=== PATIENT | female | born 1970 | race Caucasian/White ===

== ENCOUNTER → 2020-11-19 14:22 | Outpatient (BNVA) | payer OTHER, SELFPAY | PROVIDERS: PCP Internal Medicine; Visit Provider Physician Assistant | DX: E66.9 Obesity, unspecified (principal); Z68.39 Body mass index [BMI] 39.0-39.9, adult; K91.2 Postsurgical malabsorption, not elsewhere classified; R10.9 Unspecified abdominal pain; R11.2 Nausea with vomiting, unspecified; Z98.84 Bariatric surgery status; Z90.3 Acquired absence of stomach [part of] | CPT/HCPCS: 99212 ==

== ENCOUNTER 2020-11-24 06:23 | Day surgery (SDC) | payer OTHER, SELFPAY ==
--- NOTE | 2020-11-23 08:52 | HO.ANESPROP2 ---
Documented by User: Jesi Freedmanney 11/23/20 09:56 HPI - Anesthesia Eval Consult details Narrative: 50yo F for Upper Endoscopy s/p gastric sleeve 2017 Eliquis for h/o LLE DVT - ? date PMFSH Active Problems Active Problems: All Active Problems (Updated 11/19/20 @ 15:46 by Staci Boucher PA-C) Intestinal malabsorption following gastrectomy (Acute) Obesity (BMI 30-39.9) (Acute) S/P laparoscopic sleeve gastrectomy (Acute) Vomiting (Acute) Nausea (Acute) Abdominal pain (Acute) Past Medical History Medical History (Updated 11/24/20 @ 07:00 by Eulalia Dee, RAULITO) Anemia Atrial fibrillation Breast cancer Breast reconstruction deformity Depression Epilepsy GERD (gastroesophageal reflux disease) Goiter, non-toxic HLD (hyperlipidemia) IFG (impaired fasting glucose) Intestinal malabsorption following gastrectomy Left leg DVT Migraines Obesity (BMI 30-39.9) Family History Family History (Updated 11/19/20 @ 15:12 by Fariha Spear MA) Father CHF (congestive heart failure) Kidney disease Diabetes mellitus Hypertension Congenital afibrinogenemia Mother Hypertension Depressed Anxiety Sister Hypertension Back problem Daughter No problems noted. Son High cholesterol Depressed Anxiety Hypertension Social phobia Surgical History Surgical History (Updated 11/19/20 @ 15:46 by Staci Boucher PA-C) H/O Achilles tendon repair H/O right mastectomy History of sleeve gastrectomy Hx of section Hx of hysterectomy S/P laparoscopic sleeve gastrectomy Social History Social History (Updated 11/19/20 @ 15:12 by Fariha Spear MA) Alcohol intake: never Smoking Status: Never smoker Second Hand Smoke Exposure: No Use of substances other than those prescribed or required for medical reasons: No Advance Directives: No Advance Directives Information Provided: No Advance Directives on File: No Recently lost weight without trying: No Meds Allergies Allergy/AdvReac Type Severity Reaction Status Date / Time codeine [CODEINE] Allergy Mild VOMITING Verified 11/19/20 14:50 fluoxetine [From PROZAC] Allergy Mild VOMITNG Verified 11/19/20 14:50 acetaminophen [Percocet] Allergy Unknown Nausea Verified 11/19/20 14:50 oxycodone [Percocet] Allergy Unknown Nausea and Verified 11/19/20 14:50 Vomiting Codeine Phosphate Allergy Mild vomiting Uncoded 11/19/20 14:50 Home Medications Medication Instructions Recorded Confirmed Type Al hyd-Mg tr-alg ac-sod bicarb 80 tab PO 11/19/20 History mg-14.2 mg chewable tablet apixaban 5 mg tablet 5 mg PO BID 11/19/20 History atorvastatin 10 mg tablet 10 mg PO DAILY 11/19/20 History calcium citrate-ergocalciferol tab PO 11/19/20 History (vitamin D2) 250 mg-100 unit tablet docusate sodium 100 mg capsule 100 mg PO DAILY 11/19/20 History ferrous sulfate 300 mg (60 mg 300 mg PO DAILY 11/19/20 History iron)/5 mL oral liquid gabapentin 800 mg tablet 800 mg PO BEDTIME 11/19/20 History magnesium oxide 500 mg capsule 500 mg PO DAILY 11/19/20 History metoprolol tartrate 50 1 tab PO DAILY 11/19/20 History mg-hydrochlorothiazide 25 mg tablet multivitamin with minerals-folic tab PO 11/19/20 History acid 200 mcg chewable tablet nabumetone 750 mg tablet 1,500 mg PO DAILY 11/19/20 History pantoprazole 40 mg tablet,delayed 40 mg PO DAILY 11/19/20 History release polyethylene glycol 3350 17 17 g PO DAILY 11/19/20 History gram/dose oral powder promethazine-codeine oral syrup ea PO 11/19/20 History quetiapine 300 mg tablet 300 mg PO BID 11/19/20 History sertraline 50 mg tablet 50 mg PO DAILY 11/19/20 History sucralfate 100 mg/mL oral 10 ml PO BID 11/19/20 History suspension sumatriptan succinate 100 mg tablet 100 mg PO Q2-4H PRN 11/19/20 History trazodone 50 mg tablet 25 mg PO DAILY 11/19/20 History Exam Exam Date and Time: November 23, 2020 0852 Assessment and Plan Assessment Anesthesia Assessment: Chart Reviewed Documented by User: Allie Maria 11/24/20 07:12 [facility] Past Medical History Medical History (Updated 11/24/20 @ 07:00 by Eulalia Dee RN) Anemia Atrial fibrillation Breast cancer Breast reconstruction deformity Depression Epilepsy GERD (gastroesophageal reflux disease) Goiter, non-toxic HLD (hyperlipidemia) IFG (impaired fasting glucose) Intestinal malabsorption following gastrectomy Left leg DVT Migraines Obesity (BMI 30-39.9) Family History Family History (Updated 11/19/20 @ 15:12 by Fariha Spear MA) Father CHF (congestive heart failure) Kidney disease Diabetes mellitus Hypertension Congenital afibrinogenemia Mother Hypertension Depressed Anxiety Sister Hypertension Back problem Daughter No problems noted. Son High cholesterol Depressed Anxiety Hypertension Social phobia Surgical History Surgical History (Updated 11/19/20 @ 15:46 by Staci Boucher PA-C) H/O Achilles tendon repair H/O right mastectomy History of sleeve gastrectomy Hx of section Hx of hysterectomy S/P laparoscopic sleeve gastrectomy Social History Social History (Updated 11/19/20 @ 15:12 by Fariha Spear MA) Alcohol intake: never Smoking Status: Never smoker Second Hand Smoke Exposure: No Use of substances other than those prescribed or required for medical reasons: No Advance Directives: No Advance Directives Information Provided: No Advance Directives on File: No Recently lost weight without trying: No Meds Allergies Allergy/AdvReac Type Severity Reaction Status Date / Time codeine [CODEINE] Allergy Mild VOMITING Verified 11/19/20 14:50 fluoxetine [From PROZAC] Allergy Mild VOMITNG Verified 11/19/20 14:50 acetaminophen [Percocet] Allergy Unknown Nausea Verified 11/19/20 14:50 oxycodone [Percocet] Allergy Unknown Nausea and Verified 11/19/20 14:50 Vomiting Codeine Phosphate Allergy Mild vomiting Uncoded 11/19/20 14:50 Home Medications Medication Instructions Recorded Confirmed Type Al hyd-Mg tr-alg ac-sod bicarb 80 tab PO 11/19/20 History mg-14.2 mg chewable tablet apixaban 5 mg tablet 5 mg PO BID 11/19/20 History atorvastatin 10 mg tablet 10 mg PO DAILY 11/19/20 History calcium citrate-ergocalciferol tab PO 11/19/20 History (vitamin D2) 250 mg-100 unit tablet docusate sodium 100 mg capsule 100 mg PO DAILY 11/19/20 History ferrous sulfate 300 mg (60 mg 300 mg PO DAILY 11/19/20 History iron)/5 mL oral liquid gabapentin 800 mg tablet 800 mg PO BEDTIME 11/19/20 History magnesium oxide 500 mg capsule 500 mg PO DAILY 11/19/20 History metoprolol tartrate 50 1 tab PO DAILY 11/19/20 History mg-hydrochlorothiazide 25 mg tablet multivitamin with minerals-folic tab PO 11/19/20 History acid 200 mcg chewable tablet nabumetone 750 mg tablet 1,500 mg PO DAILY 11/19/20 History pantoprazole 40 mg tablet,delayed 40 mg PO DAILY 11/19/20 History release polyethylene glycol 3350 17 17 g PO DAILY 11/19/20 History gram/dose oral powder promethazine-codeine oral syrup ea PO 11/19/20 History quetiapine 300 mg tablet 300 mg PO BID 11/19/20 History sertraline 50 mg tablet 50 mg PO DAILY 11/19/20 History sucralfate 100 mg/mL oral 10 ml PO BID 11/19/20 History suspension sumatriptan succinate 100 mg tablet 100 mg PO Q2-4H PRN 11/19/20 History trazodone 50 mg tablet 25 mg PO DAILY 11/19/20 History Exam Airway Mallampati Class: II TM Dist: >3cm Neck ROM: Full Heart: RRR Lungs: CTA BL Assessment and Plan Assessment Anesthesia Assessment: Anesthesia Plan Discussed Final Anesthetic Review NPO: Yes (Sip water with meds) ASA Class: III Final Preanesthetic Review: Meds/Allgs Chart Reviewed and Consent Obtained/Reviewed Patient Risk: Intermediate Procedure Risk: Intermediate Anesthetic Plan Anesthetic Plan: MAC: Disposition: Standard PACU
[2020-11-23 09:57] VITALS: BMI 39.4
--- NOTE | 2020-11-23 16:32 | MHC.SHP ---
Pre-Procedural Eval Section B Chief Complaint: gerd Allergies: Allergies Allergy/AdvReac Type Severity Reaction Status Date / Time codeine [CODEINE] Allergy Mild VOMITING Verified 11/19/20 14:50 fluoxetine [From PROZAC] Allergy Mild VOMITNG Verified 11/19/20 14:50 acetaminophen [Percocet] Allergy Unknown Nausea Verified 11/19/20 14:50 oxycodone [Percocet] Allergy Unknown Nausea and Verified 11/19/20 14:50 Vomiting Codeine Phosphate Allergy Mild vomiting Uncoded 11/19/20 14:50 Plan I have reviewed the history and physical and performed a pertinent physical examination on my patient. No changes have occurred unless specified.
[2020-11-24 06:38] VITALS: BP 107/63; PULSE 57; RESP 16; TEMP 36; O2SAT 96; BMI 39.3
[2020-11-24 08:00] VITALS: BP 110/58; PULSE 60; RESP 16; TEMP 36.2; O2SAT 94
--- NOTE | 2020-11-24 08:07 | PM.OP ---
Brief Operative Note Date of Service: 11/24/20 Pre-op diagnosis: Weight gain after sleeve gastrectomy several years ago, gastroesophageal reflux disease, nausea Post-op diagnosis: other (3 cm sliding hiatal hernia, antral gastritis, 2nd portion of duodenum polyp) Procedure: Esophagogastroduodenoscopy, antral biopsy x2, 2nd portion duodenum polypectomy Implants: None Surgeon: Concepción Asher MD Anesthesia: MAC Estimated blood loss (mL): 0 Pathology: other (Antrum and 2nd portion duodenum polyp) Condition: stable Disposition: PACU
[2020-11-24 08:15] VITALS: BP 119/67; PULSE 59; RESP 16; TEMP 36.2; O2SAT 95
--- NOTE | 2020-11-24 10:21 | OP_ITS ---
SURGEON: Concepción Asher MD PREOPERATIVE DIAGNOSIS: POSTOPERATIVE DIAGNOSIS: PROCEDURE PERFORMED: 1. Esophagogastroduodenoscopy. 2. Second portion of duodenum polypectomy. 3. Antral biopsy x2. ESTIMATED BLOOD LOSS: COMPLICATIONS: None. ANESTHESIA: Total intravenous anesthesia with propofol given by the anesthesiologist. ASSISTANTS: None. SPECIMENS: PREPROCEDURE DIAGNOSES: Gastroesophageal reflux disease, nausea, and weight gain after sleeve gastrectomy. POSTPROCEDURE DIAGNOSES: Second portion of duodenum polyp, hiatal hernia, antral gastritis. FINDINGS: A 3 cm sliding hiatal hernia. No evidence of torsion of the gastric sleeve or stenosis. The esophageal mucosa was normal. There was linear erythema in the antrum and there was a small polyp found in the second portion of duodenum that was white in appearance. DESCRIPTION OF PROCEDURE: The patient was brought into the endoscopy suite and placed in the left lateral decubitus position on the stretcher. A safety time-out was performed. A bite block was placed between the teeth. Total intravenous anesthesia was administered using propofol by the anesthesiologist. Once the patient was adequately sedated, the gastroscope was placed into posterior oropharynx, passed down the esophagus, evaluating the esophageal mucosa which was normal. The GE junction was located at 33 cm from the incisors. The hiatus was located at 36 cm from the incisors. There was a sliding hiatal hernia. The gastroscope was then passed through the gastric pouch down to the pre-pyloric region. There was no evidence of gastric torsion or stenosis or abnormal ulcerations or lesions within the stomach. The gastroscope was passed to the pre-pyloric region. There was a linear erythema in the antrum. This was biopsied x2. The gastroscope was then passed through the pylorus into the duodenum, down to the 3rd portion of duodenum. At the second portion of duodenum, there was a relatively sessile white in appearance polyp located on the intestinal folds. We biopsied this x2 and completely removed it. We sent this for pathology. The rest of the duodenum that was evaluated, appeared to be normal. Gastroscope was retracted back in the stomach. Stomach was desufflated and gastroscope was removed without difficulty. The patient tolerated the procedure well and was sent to recovery room in stable condition. MD ADITYA Aguilar/JEREMIAS / [id number]
== END 2020-11-24 08:56 | disposition home or self-care (01) ==
PROVIDERS: PCP Internal Medicine; Visit Provider Surgery
PROC: 0DJ08ZZ Inspection of Upper Intestinal Tract, Via Natural or Artificial Opening Endoscopic (ICD-10-PCS; CPT 43235; principal; 2020-11-24 07:30)
DX: K21.9 Gastro-esophageal reflux disease without esophagitis (principal); K29.50 Unspecified chronic gastritis without bleeding; K31.7 Polyp of stomach and duodenum; K44.9 Diaphragmatic hernia without obstruction or gangrene; D64.9 Anemia, unspecified; E66.9 Obesity, unspecified; Z68.39 Body mass index [BMI] 39.0-39.9, adult; G40.909 Epilepsy, unspecified, not intractable, without status epilepticus; K91.2 Postsurgical malabsorption, not elsewhere classified; Z98.84 Bariatric surgery status; Z85.3 Personal history of malignant neoplasm of breast; Z90.11 Acquired absence of right breast and nipple; Z79.899 Other long term (current) drug therapy; Z88.8 Allergy status to other drugs, medicaments and biological substances
CPT/HCPCS: 43239; 88305; 88342

== ENCOUNTER → 2020-12-21 13:51 | Outpatient (BNVA) | payer OTHER, SELFPAY | PROVIDERS: PCP Internal Medicine; Visit Provider Surgery | DX: E66.9 Obesity, unspecified (principal); K91.2 Postsurgical malabsorption, not elsewhere classified; Z90.3 Acquired absence of stomach [part of]; Z98.84 Bariatric surgery status | CPT/HCPCS: 99212 ==

== ENCOUNTER 2021-01-07 07:30 | Outpatient (REF) | payer OTHER, SELFPAY ==
[2021-01-07 08:27] LABS: MANUAL DIFF FLAG NO
[2021-01-07 08:34] LABS: Basophils Percent Auto 0.6 % (0-2); Eosinophils Absolute Auto 0.1 X10*3/uL (0.0-0.4); Eosinophils Percent Auto 1.8 % (0-4); Hematocrit 40.6 % (37-47); Hemoglobin 12.4 g/dl (12.0-16.0); Imm Gran Abs Auto 0.02 X10*3/uL (0.00-0.03); Imm Gran Pct Auto 0.4 % (0.0-0.4); Lymphocytes Absolute Auto 1.3 X10*3/uL (1.2-4.9); Lymphocytes Percent Auto 25.5 % (20-40); Mean Corpuscular HGB Conc 30.5 g/dl (31.0-35.0); Mean Corpuscular Hemoglobin 26.6 pg (27.0-33.0); Mean Corpuscular Volume 87.1 fL (80-98); Mean Platelet Volume 10.4 fL (9.4-12.3); Monocytes Absolute Auto 0.3 X10*3/uL (0.1-1.2); Neutrophils Absolute Auto 3.4 X10*3/uL (2.0-8.3); Neutrophils Percent Auto 65.7 % (45-73); Platelet Count 246 X10*3/uL (160-400); Red Blood Count 4.66 X10*6/uL (4.20-5.50); Red Cell Distribution Width 13.8 % (11.0-16.0); White Blood Count 5.1 X10*3/uL (4.8-10.8)
[2021-01-07 08:51] LABS: Estimated Average Glucose 143 mg/dL; Hemoglobin A1c % 6.6 %
[2021-01-07 09:04] LABS: Alanine Aminotransferase 19 U/L (0-31); Alkaline Phosphatase 111 U/L (39-117); Anion Gap 14 (12-20); Aspartate Amino Transferase 20 U/L (5-31); Bilirubin Total 0.4 mg/dL (0.0-1.0); Blood Urea Nitrogen 22 mg/dL (9-16); Calcium 8.8 mg/dL (8.4-10.2); Carbon Dioxide 24 mmol/L (22-29); Chloride 106 mmol/L (96-108); Cholesterol 178 mg/dL; Estimated Glomerular Filt Rate > 60; Glucose Fasting 129 mg/dL (60-99); HDL Cholesterol 38 mg/dL; Iron 79 mcg/dL (30-160); LDL Cholesterol Calculated 100 mg/dl; Percent Iron Saturation 20 % (15-50); Sodium 140 mmol/L (135-145); Total Iron Binding Capacity 405 mcg/dL (228-428); Triglycerides 201 mg/dL; Unsaturated Iron Binding 326 ug/dL
[2021-01-07 09:25] LABS: Thyroid Stimulating Hormone 1.87 uIU/mL (0.32-4.0); Vitamin D 25-OH Total 32.6 ng/mL (>30)
[2021-01-07 09:27] LABS: Vitamin B12 449 pg/mL (200-900)
[2021-01-11 01:41] LABS: Zinc 74 mcg/dL (60-130)
[2021-01-12 11:07] LABS: Vitamin A 52 mcg/dL (38-98)
[2021-01-12 12:46] LABS: Vitamin B1 16 nmol/L (8-30)
== END 2021-01-07 07:31 | disposition home or self-care (01) ==
LOC: HO.LAB 07:30
PROVIDERS: PCP Internal Medicine; Visit Provider Surgery
DX: Z01.818 Encounter for other preprocedural examination (principal); K91.2 Postsurgical malabsorption, not elsewhere classified; Z90.3 Acquired absence of stomach [part of]
CPT/HCPCS: 36415; 80053; 80061; 82306; 82607; 83036; 83540; 84425; 84443; 84590; 84630; 85025; 86140

== ENCOUNTER → 2021-01-28 14:50 | Outpatient (BNVA) | payer OTHER, SELFPAY | PROVIDERS: PCP Internal Medicine; Visit Provider Surgery | DX: E66.9 Obesity, unspecified (principal); Z68.39 Body mass index [BMI] 39.0-39.9, adult; Z98.84 Bariatric surgery status | CPT/HCPCS: 99212 ==

== ENCOUNTER → 2021-02-21 10:40 | Outpatient (BNVA) | payer OTHER, SELFPAY | PROVIDERS: PCP Internal Medicine; Visit Provider Surgery | DX: E66.9 Obesity, unspecified (principal); Z68.38 Body mass index [BMI] 38.0-38.9, adult | CPT/HCPCS: 99212 ==

== ENCOUNTER → 2021-03-15 10:13 | Outpatient (BNVA) | payer OTHER, SELFPAY | PROVIDERS: PCP Internal Medicine; Visit Provider Surgery | DX: E66.9 Obesity, unspecified (principal); Z68.38 Body mass index [BMI] 38.0-38.9, adult | CPT/HCPCS: 99212 ==

== ENCOUNTER → 2021-04-08 09:11 | Outpatient (BNVA) | payer OTHER, SELFPAY | PROVIDERS: PCP Internal Medicine; Visit Provider Surgery | DX: E66.9 Obesity, unspecified (principal); Z68.36 Body mass index [BMI] 36.0-36.9, adult | CPT/HCPCS: 99212 ==

== ENCOUNTER → 2021-05-06 10:11 | Outpatient (BNVA) | payer OTHER, SELFPAY | PROVIDERS: PCP Internal Medicine; Visit Provider Surgery | DX: E66.9 Obesity, unspecified (principal); Z68.36 Body mass index [BMI] 36.0-36.9, adult | CPT/HCPCS: 99212 ==

== ENCOUNTER → 2021-05-27 11:18 | Outpatient (BNVA) | payer OTHER, SELFPAY | PROVIDERS: PCP Internal Medicine; Visit Provider Surgery | DX: E66.9 Obesity, unspecified (principal); K21.9 Gastro-esophageal reflux disease without esophagitis; K90.49 Malabsorption due to intolerance, not elsewhere classified; R73.01 Impaired fasting glucose; E78.5 Hyperlipidemia, unspecified; Z68.35 Body mass index [BMI] 35.0-35.9, adult; Z90.3 Acquired absence of stomach [part of]; Z88.6 Allergy status to analgesic agent; Z88.5 Allergy status to narcotic agent; Z88.7 Allergy status to serum and vaccine; Z88.8 Allergy status to other drugs, medicaments and biological substances | CPT/HCPCS: 99212 ==

== ENCOUNTER → 2021-07-19 09:32 | Outpatient (BNVA) | payer OTHER, SELFPAY | PROVIDERS: PCP Internal Medicine; Visit Provider Surgery | DX: E66.9 Obesity, unspecified (principal); Z68.35 Body mass index [BMI] 35.0-35.9, adult | CPT/HCPCS: 99212 ==

== ENCOUNTER → 2021-08-09 10:29 | Outpatient (BNVA) | payer OTHER, SELFPAY | PROVIDERS: PCP Internal Medicine; Visit Provider Physician Assistant Surgical | DX: E66.9 Obesity, unspecified (principal); K21.9 Gastro-esophageal reflux disease without esophagitis | CPT/HCPCS: 99212 ==

== ENCOUNTER 2021-08-31 09:19 | Outpatient (REF) | payer OTHER, SELFPAY ==
--- NOTE | ~2021-08-31 | FL_ITS ---
EXAMINATION: FL GI SERIES CLINICAL INFORMATION: Gastroesophageal reflux disease without esophagitis. Retrosternal chest pain. COMPARISON: None TECHNIQUE: Routine upper GI air-contrast study was performed in upright and lying position. FINDINGS: Following oral administration of thick barium and effervescent granules in upright view, there is normal propagation of bolus from the oral cavity through the widely patent esophagus into stomach without any evidence of obstruction, narrowing or stricture. There is indentation seen at the GE junction likely from previous fundoplication. Also visualized is gastric sleeve surgery with small caliber stomach. There is normal transit of oral contrast from the stomach into the small bowel loop without obstruction. The mucosal pattern of stomach and the duodenum is normal. On supine position there is a moderate to large gastroesophageal reflux without hiatal hernia. FLUOROSCOPY TIME: 1.9 minutes DOSE AREA PRODUCT: 32.605 uGy-m2 (microgray-meter squared) FL/FL upper GI series IMPRESSION: Large gastroesophageal reflux in supine position. There is evidence of previous fundoplication and gastric sleeve surgical changes.
== END 2021-08-31 09:20 | disposition home or self-care (01) ==
LOC: HO.XRAY 09:19
PROVIDERS: PCP Internal Medicine; Visit Provider Physician Assistant Surgical
DX: K21.9 Gastro-esophageal reflux disease without esophagitis (principal); E66.9 Obesity, unspecified
CPT/HCPCS: 74240

== ENCOUNTER → 2021-10-19 08:13 | Outpatient (BNVA) | payer OTHER, SELFPAY | PROVIDERS: PCP Internal Medicine; Visit Provider Physician Assistant Surgical | DX: Z13.89 Encounter for screening for other disorder (principal) | CPT/HCPCS: Q3014 ==

== ENCOUNTER 2022-02-15 10:15 | Outpatient (REF) | payer OTHER, SELFPAY ==
[2022-02-15 11:32] LABS: MANUAL DIFF FLAG NO
[2022-02-15 12:32] LABS: Basophils Percent Auto 0.6 % (0-2); Eosinophils Absolute Auto 0.1 X10*3/uL (0.0-0.4); Eosinophils Percent Auto 1.7 % (0-4); Hematocrit 40.6 % (37.0-47.0); Hemoglobin 12.6 g/dl (12.0-16.0); Imm Gran Abs Auto 0.02 X10*3/uL (0.00-0.03); Imm Gran Pct Auto 0.4 % (0.0-0.4); Lymphocytes Absolute Auto 1.2 X10*3/uL (1.2-4.9); Mean Corpuscular Hemoglobin 27.1 pg (27.0-33.0); Mean Corpuscular Volume 87.3 fL (80.0-98.0); Mean Platelet Volume 10.5 fL (9.4-12.3); Monocytes Absolute Auto 0.3 X10*3/uL (0.1-1.2); Monocytes Percent Auto 6.1 % (2-11); Neutrophils Absolute Auto 3.7 x10*3/uL (2.0-8.3); Neutrophils Percent Auto 69.2 % (45-73); Platelet Count 268 X10*3/uL (160-400); Red Blood Count 4.65 X10*6/uL (4.20-5.50); Red Cell Distribution Width 14.5 % (11.0-16.0); White Blood Count 5.3 X10*3/uL (4.8-10.8)
[2022-02-15 12:43] LABS: Estimated Average Glucose 126 mg/dL
[2022-02-15 13:03] LABS: Anion Gap 13 (12-20); Blood Urea Nitrogen 20 mg/dL (9-16); Calcium 9.5 mg/dL (8.4-10.2); Carbon Dioxide 25 mmol/L (22-29); Chloride 106 mmol/L (96-108); Cholesterol 266 mg/dL; Estimated Glomerular Filt Rate 56; Glucose Random 103 mg/dL (60-115); HDL Cholesterol 57 mg/dL; Iron 67 mcg/dL (30-160); LDL Cholesterol Calculated 164 mg/dl; Percent Iron Saturation 16 % (15-50); Potassium 4.7 mmol/L (3.3-5.1); Sodium 139 mmol/L (135-145); Total Iron Binding Capacity 425 mcg/dL (228-428); Triglycerides 229 mg/dL; Unsaturated Iron Binding 358 ug/dL
[2022-02-15 13:17] LABS: Ferritin 19 ng/mL (10-250); TSH reflex Free T4 1.48 uIU/mL (0.32-4.0); Vitamin D 25-OH Total 30.7 ng/mL (>30)
[2022-02-15 13:30] LABS: Folate > 20.0 ng/mL (> or = 4.0); Vitamin B12 418 pg/mL (200-900)
[2022-02-16 13:05] LABS: Calcium (PTHI) 9.3 mg/dL (8.6-10.4); PTHI 73 pg/mL (16-77)
[2022-02-19 14:37] LABS: Vitamin B1 31 nmol/L (8-30)
[2022-02-19 16:07] LABS: Zinc 65 mcg/dL (60-130)
[2022-02-20 13:22] LABS: Vitamin A 75 mcg/dL (38-98)
== END 2022-02-15 10:16 | disposition home or self-care (01) ==
LOC: HO.LAB 10:15
PROVIDERS: PCP Internal Medicine; Visit Provider Physician Assistant Surgical
DX: E66.9 Obesity, unspecified (principal)
CPT/HCPCS: 36415; 80048; 80061; 82306; 82607; 82728; 82746; 83036; 83540; 83970; 84425; 84443; 84590; 84630; 85025; 99212